=== PATIENT | female | born 1985 | race Caucasian/White ===

== ENCOUNTER 2017-03-24 08:05 | Inpatient (IN) | payer BC, MEDICAID ==
[2017-03-24] MEDS ORDERED: OXYTOCIN* 10 UNITS/ML 1 ML VIAL IM ONE (11:27)
[2017-03-24] MEDS ORDERED: Zolpidem TAB* 5 MG PO PRN (11:27)
[2017-03-24] MEDS ORDERED: Witch Hazel PAD* JAR TOPICAL PRN (11:27)
[2017-03-24] MEDS ORDERED: Dibucaine 1% 28.35 GM TUBE PR PRN (11:27)
[2017-03-24] MEDS ORDERED: Acetaminophen TAB* 325 MG PO PRN (11:27)
[2017-03-24] MEDS ORDERED: Glycerin ADULT SUPP PR PRN (11:27)
[2017-03-24] MEDS: Ibuprofen TAB* 600 MG PO PRN ×2 (12:13→18:12)
[2017-03-24] MEDS: Docusate CAP* 100 MG PO SCH ×2 (13:55→20:13)
[2017-03-25] MEDS: Ibuprofen TAB* 600 MG PO PRN (00:33)
[2017-03-25] MEDS: Simethicone TAB* 80 MG TAB.CHEW PO SCH (07:18)
[2017-03-25 07:33] VITALS: BP 133/81
[2017-03-25 08:26] LABS: Hematocrit 40 % (35-47); Hemoglobin 13.6 g/dl (12.0-16.0); Mean Corpuscular HGB Conc 34 g/dl (31-36); Mean Corpuscular Hemoglobin 30 pg (27-31); Mean Corpuscular Volume 89 fL (80-97); Mean Platelet Volume 7 um3 (7.4-10.4); Red Blood Count 4.54 10^6/ul (4.0-5.4); Red Cell Distribution Width 15 % (10.5-15); White Blood Count 10.4 10^3/ul (3.5-10.8)
[2017-03-25] MEDS ORDERED: Ferrous Gluconate TAB* 324 MG TAB PO SCH (09:00)
[2017-03-25] MEDS: Docusate CAP* 100 MG PO SCH (09:21)
[2017-03-25] MEDS ORDERED: RHO D Immune Globulin (HUMAN)* 300 MCG = 1,500 I.U. INJ IM ONE (09:50)
== END 2017-03-25 12:05 | disposition home or self-care (01) | DRG 560 ==
LOC: MCHOBOUT 08:05 → MCHOB 09:43
PROVIDERS: ADMIT Obstetrics & Gynecology; ATTEND Obstetrics & Gynecology
PROC: 10E0XZZ Delivery of Products of Conception, External Approach (ICD-10-PCS; principal; 2017-03-24)
PROC: 10907ZC Drainage of Amniotic Fluid, Therapeutic from Products of Conception, Via Natural or Artificial Opening (ICD-10-PCS; 2017-03-24)
DX: O48.0 Post-term pregnancy (principal); Z68.41 Body mass index [BMI] 40.0-44.9, adult; E66.01 Morbid (severe) obesity due to excess calories; O99.214 Obesity complicating childbirth; Z3A.40 40 weeks gestation of pregnancy; Z37.0 Single live birth
CPT/HCPCS: 36415; 85025; 85461; 86900; 86901; A9270-GY; J2790

== ENCOUNTER 2018-10-12 08:14 | Emergency (ER) | payer BC ==
--- OUTSIDE RECORDS SUMMARY | 2018-10-12 08:20 | XMS REPORT | Continuity of Care Document ---
:1985 External Reference #:[id number] Author Name ApollopinaPadmini Care Team Providers Name Role Phone Jennifer Barnes MD Primary Care Physician Unavailable Payers Date Identification Numbers Payment Provider Subscriber Expires: 2015 Policy Number: [id number] [employer] Jose F Chu Group Number: [id number] [address] PayID: [id number] [place] [address] Policy Number: [id number] [employer] Jose F hCu PayID: [id number] [address] [address] [place] [address] Advance Directives Type Date Description Status Comment Other Directive 08/17/2017 Health Care Proxy Current and Verified Problems Description No Active Problems Family History Date Family Member(s) Observation Comments General Cancer General Diabetes General Heart Disease Father Hypertension Father AR Mother No Current Problems Social History Type Date Description Comments Sex Unknown Marital Status Single Lives With Children 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[employer] ETOH Use Occasionally consumes alcohol Tobacco Use Start: Unknown End: Patient is a former Quit in 2018 (1/2 Unknown smoker ppd x 15 years) Smoking Status Reviewed: 09/24/18 Patient is a former Quit in 2018 (1/2 smoker ppd x 15 years) Exercise Exercises regularly Type/Frequency Allergies, Adverse Reactions, Alerts Active Allergies Reaction Severity Comments Date Penicillin 02/10/2014 Augmentin 02/10/2014 Azithromycin 02/16/2015 Medications Active Medications SIG Qnty Indications Ordering Provider Date Amlodipine Besylate 1 by mouth every 30tabs I10 Lm Greenfield NP 09/24/2018 5mg day Tablets Omeprazole 1 by mouth once 30caps K21.9 Lm Greenfield NP 08/13/[address] Fluticasone 2 sprays each 16units H93.291 Lm Greenfield NP 08/17/2017 Propionate nostril qd. 50mcg/Act Suspension History Medications No Active Medications Unknown 06/29/2017 - 08/17/2017 Ranitidine HCL take one tablet by 60tabs Lm Greenfield NP 2016 - 150mg mouth twice a day 06/29/2017 Tablets Xenical one capsule PO tid 90caps Lm Greenfield NP 09/22/2015 - 120mg Capsules with each fat 10/07/2015 containing meal Ondansetron dissolve one 30tabs R11.2 Lm Greenfield NP 07/15/2015 - 4mg Tablets tablet orally 07/19/2015 Dispers every 8 hours as needed for nausea. No Active Medications Unknown 04/13/2015 - 04/13/2015 Sertraline HCL one tablet daily. 90tabs F32.8 Lm Greenfield NP 04/13/2015 - 50mg 06/29/2017 Tablets Escitalopram Oxalate 1/2 tab once daily 30tabs Lm Greenfield NP 03/18/2015 - for 1 week then 04/13/2015 10mg Tablets increase to 1 tab daily. No Active Medications Unknown 02/10/2014 - 03/18/2015 NorethindronMell Mckeon, - 0.35mg [employer] 07/09/2015 Tablets Immunizations Description No Information Available Vital Signs Date Vital Result Comment 09/24/2018 8:53am Height 64 inches 5'4" Weight 251.38 lb Heart Rate 70 /min BP Systolic 154 mmHg BP Diastolic 105 mmHg BP Systolic Recheck 146 mmHg BP Diastolic Recheck 98 mmHg Body Temperature 97.9 F O2 % BldC Oximetry 98 % BMI (Body Mass Index) 43.1 kg/m2 08/13/2018 8:37am Height 64 inches 5'4" Weight 251.50 lb Heart Rate 66 /min BP Systolic 179 mmHg BP Diastolic 98 mmHg BP Systolic Recheck 176 mmHg BP Diastolic Recheck 100 mmHg Body Temperature 97.6 F O2 % BldC Oximetry 98 % BMI (Body Mass Index) 43.2 kg/m2 08/17/2017 8:53am Weight 234.50 lb Heart Rate 84 /min BP Systolic 128 mmHg BP Diastolic 80 mmHg Body Temperature 98.0 F O2 % BldC Oximetry 98 % 06/29/2017 11:09am Weight 229.50 lb Heart Rate 73 /min BP Systolic Sitting 122 mmHg BP Diastolic Sitting 82 mmHg O2 % BldC Oximetry 96 % 10/07/2015 11:47am Heart Rate 74 /min BP Systolic Sitting 131 mmHg BP Diastolic Sitting 89 mmHg Body Temperature 99.0 F O2 % BldC Oximetry 98 % 09/07/2015 10:20am Weight 225.00 lb Heart Rate 64 /min BP Systolic Sitting 122 mmHg BP Diastolic Sitting 78 mmHg Respiratory Rate 15 /min Body Temperature 98.1 F O2 % BldC Oximetry 98 % 07/15/2015 11:46am Weight 212.50 lb Heart Rate 91 /min BP Systolic Sitting 132 mmHg BP Diastolic Sitting 90 mmHg Respiratory Rate 15 /min Body Temperature 98.1 F O2 % BldC Oximetry 98 % 06/22/2015 10:40am Weight 213.25 lb Heart Rate 69 /min BP Systolic Sitting 128 mmHg BP Diastolic Sitting 86 mmHg Body Temperature 98.2 F O2 % BldC Oximetry 98 % 04/13/2015 9:33am Height 64.5 inches 5'4.50" Weight 205.25 lb Heart Rate 92 /min BP Systolic Sitting 112 mmHg BP Diastolic Sitting 84 mmHg Body Temperature 97.0 F O2 % BldC Oximetry 98 % BMI (Body Mass Index) 34.7 kg/m2 02/16/2015 11:01am Height 64.5 inches 5'4.50" Weight 202.00 lb Heart Rate 76 /min BP Systolic Sitting 121 mmHg BP Diastolic Sitting 80 mmHg Body Temperature 97.9 F BMI (Body Mass Index) 34.1 kg/m2 02/10/2014 1:51pm Height 64 inches 5'4" Weight 197.00 lb Heart Rate 74 /min BP Systolic 115 mmHg BP Diastolic 82 mmHg BMI (Body Mass Index) 33.8 kg/m2 Results Test Date Facility Test Result H/L Range Note Laboratory test 12/[facility] HCG 3382.00 N [address] mIU/[place] [address] [phone] Urinalysis 12/26/2015 [facility] Urine Color Yellow N Profile [address] [place] [address] [phone] Urine Appearance Clear N Urine Specific [place] 1.013 N 1.010-1.030 Urine pH 5.0 N 5-9 Urine Urobilinogen Negative N Negative Urine Ketones Negative N Negative Urine Protein Negative N Negative Urine Leukocytes Negative N Negative Urine Blood 3+ Abnormal Negative Urine Nitrite Negative N Negative Urine Bilirubin Negative N Negative Urine Glucose Negative N Negative Urine White Blood Cell Trace(0-5/hpf) N Absent Urine Red Blood Cell 3+(>10/hpf) Abnormal Absent Urine Bacteria Absent N Absent Urine Squamous Epithelial Cell Present Abnormal Absent Urine Hyaline Casts Present Abnormal Absent Inr/Protime 12/26/2015 [facility] Inr 0.88 Low 0.89-1.[address] [place] [address] [phone] Laboratory test 12/26/2015 [facility] Partial 31.6 N 26.0- 36.[address] [place] [address] PTT [phone] CBC Auto Diff 12/26/2015 [facility] White Blood 9.6 10^3/uL N 3.5-10.[address] [place] [address] [phone] Red Blood Count 4.63 10^6/uL N 4.0-5.4 Hemoglobin 14.1 g/dL N 12.0-16.0 Hematocrit 42 % N 35-47 Mean Corpuscular Volume 90 fL N 80-97 Mean Corpuscular Hemoglobin 31 pg N 27-31 Mean Corpuscular HGB Conc 34 g/dL N 31-36 Red Cell Distribution Width 12 % N 10.5-15 Platelet Count 279 10^3/uL N 150-450 Mean Platelet Volume 7 um3 Low 7.4-10.4 Abs Neutrophils 6.5 10^3/uL N 1.5-7.7 Abs Lymphocytes 1.9 10^3/uL N 1.0-4.8 Abs Monocytes 0.5 10^3/uL N 0-0.8 Abs Eosinophils 0.2 10^3/uL N 0-0.6 Abs Basophils 0.4 10^3/uL High 0-0.2 Abs Nucleated RBC 0.01 10^3/uL N Granulocyte % 67.2 % N 38-83 Lymphocyte % 20.1 % Low 25-47 Monocyte % 5.6 % N 1-9 Eosinophil % 2.5 % N 0-6 Basophil % 4.6 % High 0-2 Nucleated Red Blood Cells % 0.1 N Laboratory test 12/26/2015 [facility] Lactic Acid 0.8 mmol/L N 0.5-2.0 2 finding [address] [place] [address] [phone] Comp Metabolic 12/26/2015 [facility] Sodium 137 mmol/L N 133- 145 Panel [address] [place] [address] [phone] Potassium 3.9 mmol/L N 3.5-5.0 Chloride 104 mmol/L N 101-111 Co2 Carbon Dioxide 27 mmol/L N 22-32 Anion Gap 6 mmol/L N 2-11 Glucose 83 mg/dL N 70-100 Blood Urea Nitrogen 13 mg/dL N 6-24 Creatinine 0.65 mg/dL N 0.51-0.95 BUN/Creatinine Ratio 20.0 N 8-20 Calcium 9.5 mg/dL N 8.6-10.3 Total Protein 7.1 g/dL N 6.4-8.9 Albumin 3.9 g/dL N 3.2-5.2 Globulin 3.2 g/dL N 2-4 Albumin/Globulin Ratio 1.2 N 1-3 Total Bilirubin 0.20 mg/dL N 0.2-1.0 Alkaline Phosphatase 58 U/L N 34-104 Alt 13 U/L N 7-52 Ast 14 U/L N 13-39 Egfr Non- 105.6 N >60 Egfr 135.8 N >60 3 Laboratory test finding 10/07/2015 [employer] [facility] Test Urine negative Ua Routine 10/07/2015 [employer] [facility] House Ua Specific [place] 1.020 Ua PH 5 Ua Color yellow Ua Appera clear Ua WBC neg Ua Protein trace Ua Glucose neg Ua Ketones neg Ua Bilirubin neg Ua Urobilinogen normal Ua Nitrite neg Ua Occult Blood trace Laboratory test finding 10/07/2015 [facility] Amylase 29 U/L N 29-103 [address] [place] [address] [phone] Lipase 13 U/L N 11.0-82.0 Comp Metabolic Panel 10/07/2015 [facility] Sodium 139 mmol/L N 133-145 [address] [place] [address] [phone] Potassium 3.9 mmol/L N 3.5-5.0 Chloride 104 mmol/L N 101-111 Co2 Carbon Dioxide 28 mmol/L N 22-32 Anion Gap 7 mmol/L N 2-11 Glucose 75 mg/dL N 70-100 Blood Urea Nitrogen 18 mg/dL N 6-24 Creatinine 0.71 mg/dL N 0.51-0.95 BUN/Creatinine Ratio 25.4 High 8-20 Calcium 9.1 mg/dL N 8.6-10.3 Total Protein 7.2 g/dL N 6.4-8.9 Albumin 4.2 g/dL N 3.2-5.2 Globulin 3.0 g/dL N 2-4 Albumin/Globulin Ratio 1.4 N 1-3 Total Bilirubin 0.30 mg/dL N 0.2-1.0 Alkaline Phosphatase 67 U/L N 34-104 Alt 17 U/L N 7-52 Ast 22 U/L N 13-39 Egfr Non- 95.4 N >60 Egfr 122.7 N >60 4 CBC Auto Diff 10/07/2015 [facility] White Blood 8.4 10^3/uL N 3.5-10.[address] [place] [address] [phone] Red Blood Count 4.65 10^6/uL N 4.0-5.4 Hemoglobin 14.6 g/dL N 12.0-16.0 Hematocrit 42 % N 35-47 Mean Corpuscular Volume 91 fL N 80-97 Mean Corpuscular Hemoglobin 31 pg N 27-31 Mean Corpuscular HGB Conc 35 g/dL N 31-36 Red Cell Distribution Width 13 % N 10.5-15 Platelet Count 286 10^3/uL N 150-450 Mean Platelet Volume 7 um3 Low 7.4-10.4 Abs Neutrophils 5.2 10^3/uL N 1.5-7.7 Abs Lymphocytes 2.2 10^3/uL N 1.0-4.8 Abs Monocytes 0.6 10^3/uL N 0-0.8 Abs Eosinophils 0.3 10^3/uL N 0-0.6 Abs Basophils 0 10^3/uL N 0-0.2 Abs Nucleated RBC 0 10^3/uL N Granulocyte % 62.2 % N 38-83 Lymphocyte % 26.6 % N 25-47 Monocyte % 7.2 % N 1-9 Eosinophil % 3.5 % N 0-6 Basophil % 0.5 % N 0-2 Nucleated Red Blood Cells % 0 N CBC Auto Diff 07/15/2015 [facility] White Blood 8.7 10^3/uL N 3.5-10.[address] [place] [address] [phone] Red Blood Count 5.00 10^6/uL N 4.0-5.4 Hemoglobin 15.5 g/dL N 12.0-16.0 Hematocrit 47 % N 35-47 Mean Corpuscular Volume 93 fL N 80-97 Mean Corpuscular Hemoglobin 31 pg N 27-31 Mean Corpuscular HGB Conc 33 g/dL N 31-36 Red Cell Distribution Width 13 % N 10.5-15 Platelet Count 271 10^3/uL N 150-450 Mean Platelet Volume 8 um3 N 7.4-10.4 Abs Neutrophils 6.8 10^3/uL N 1.5-7.7 Abs Lymphocytes 1.1 10^3/uL N 1.0-4.8 Abs Monocytes 0.6 10^3/uL N 0-0.8 Abs Eosinophils 0.2 10^3/uL N 0-0.6 Abs Basophils 0 10^3/uL N 0-0.2 Abs Nucleated RBC 0 10^3/uL N Granulocyte % 78.4 % N 38-83 Lymphocyte % 12.1 % Low 25-47 Monocyte % 6.4 % N 1-9 Eosinophil % 2.6 % N 0-6 Basophil % 0.5 % N 0-2 Nucleated Red Blood Cells % 0 N Comp Metabolic Panel 07/15/2015 [facility] Sodium 136 mmol/L N 133-[address] [place] [address] [phone] Potassium 3.5 mmol/L N 3.5-5.0 Chloride 101 mmol/L N 101-111 Co2 Carbon Dioxide 27 mmol/L N 22-32 Anion Gap 8 mmol/L N 2-11 Glucose 77 mg/dL N 70-100 Blood Urea Nitrogen 19 mg/dL N 6-24 Creatinine 0.66 mg/dL N 0.51-0.95 BUN/Creatinine Ratio 28.8 High 8-20 Calcium 8.9 mg/dL N 8.6-10.3 Total Protein 6.8 g/dL N 6.4-8.9 Albumin 4.3 g/dL N 3.2-5.2 Globulin 2.5 g/dL N 2-4 Albumin/Globulin Ratio 1.7 N 1-3 Total Bilirubin 0.70 mg/dL N 0.2-1.0 Alkaline Phosphatase 70 U/L N 34-104 Alt 15 U/L N 7-52 Ast 15 U/L N 13-39 Egfr Non- 103.8 N >60 Egfr 133.5 N >60 5 Laboratory test 07/15/2015 [facility] TSH (Thyroid Stim 2.73 N 0.34-5.60 finding 101 [facility] Horm) ?IU/[place] [address] [phone] Laboratory test 07/15/2015 [facility] Urine Culture And SEE RESULT 6 finding 101 [facility] [place] [address] [phone] Laboratory test 07/15/2015 [employer] [facility] [facility] Test neg finding Urine Ua Routine 07/15/2015 [employer] [facility] [facility] House Ua Specific 1.020 [place] Ua PH 5 Ua Color dark yellow Ua Appera cloudy Ua WBC neg Ua Protein trace Ua Glucose neg Ua Ketones neg Ua Bilirubin neg Ua Urobilinogen neg Ua Nitrite neg Ua Occult Blood positive Lipid Profile 02/25/2015 [facility] Triglycerides 153 mg/dL N 7 (Trig/Chol/HDL) [address] [place] [address] [phone] Cholesterol 207 mg/dL N 8 HDL Cholesterol 50.9 mg/dL N 9 LDL Cholesterol 126 mg/dL N 10 Laboratory test finding 02/25/2015 [facility] Glucose 89 mg/dL N 70-[address] [place] [address] [phone] 1 <5.0 Negative 5.0 - 25.0 Indeterminate (Repeat testing recommended after 72 hours) >25.0 Positive Perimenopausal women can display HCG levels of up to 20 mIU/mL 2 [facility] Severe Sepsis and Septic Shock Management Bundle Measure requires all lactic acids initially measuring >2.0 mmol/L be repeated. 3 Because ethnic data is not always readily available, this report includes an eGFR for both -Americans and non- Americans. The National Kidney Disease Education Program (NKDEP) does not endorse the use of the MDRD equation for patients that are not between the ages of 18 and 70, are , have extremes of body size, muscle mass, or nutritional status, or are non- or non-. According to the National Kidney Foundation, irrespective of diagnosis, the stage of the disease is based on the level of kidney function: Stage Description GFR(mL/min/1.73 m(2)) 1 Kidney damage with normal or decreased GFR 90 2 Kidney damage with mild decrease in GFR 60-89 3 Moderate decrease in GFR 30-59 4 Severe decrease in GFR 15-29 5 Kidney failure <15 (or dialysis) 4 Because ethnic data is not always readily available, this report includes an eGFR for both -Americans and non- Americans. The National Kidney Disease Education Program (NKDEP) does not endorse the use of the MDRD equation for patients that are not between the ages of 18 and 70, are , have extremes of body size, muscle mass, or nutritional status, or are non- or non-. According to the National Kidney Foundation, irrespective of diagnosis, the stage of the disease is based on the level of kidney function: Stage Description GFR(mL/min/1.73 m(2)) 1 Kidney damage with normal or decreased GFR 90 2 Kidney damage with mild decrease in GFR 60-89 3 Moderate decrease in GFR 30-59 4 Severe decrease in GFR 15-29 5 Kidney failure <15 (or dialysis) 5 Because ethnic data is not always readily available, this report includes an eGFR for both -Americans and non- Americans. The National Kidney Disease Education Program (NKDEP) does not endorse the use of the MDRD equation for patients that are not between the ages of 18 and 70, are , have extremes of body size, muscle mass, or nutritional status, or are non- or non-. According to the National Kidney Foundation, irrespective of diagnosis, the stage of the disease is based on the level of kidney function: Stage Description GFR(mL/min/1.73 m(2)) 1 Kidney damage with normal or decreased GFR 90 2 Kidney damage with mild decrease in GFR 60-89 3 Moderate decrease in GFR 30-59 4 Severe decrease in GFR 15-29 5 Kidney failure <15 (or dialysis) 6 SEE RESULT BELOW Name: JOSE F CHU : [address]: Lm Greenfield NP Acct: [id number] Unit: [id number] AGE: 30 Location: [facility] Re07/15/15 SEX: F Status: REG REF SPEC: [id number] ISABEL: 07/15/15-1226 [facility] DR: Lm Greenfield NP REQ: [id number] RECD: 07/15/15 STATUS: COMP _ SOURCE: URINE SPDESC: ORDERED: Urine Culture Procedure Result Reported Site Urine Culture Final 07/16/15- 1643 ML No growth of clinically significant organisms * ML - MAIN LAB (PSC1) . END OF REPORT * ML=Testing performed at Main Lab DEPARTMENT OF PATHOLOGY, [address] [place] [address] Talha Smiley M.D. Director [facility] # [id number] 7 Desirable <150 Borderline high 150-199 High 200-499 Very High >500 8 Desirable <200 Borderline high 200-239 High >239 9 Low <40 Desirable: 40-60 High: >60 10 Desirable: <100 mg/dL Near Optimal: 100-129 mg/dL Borderline High: 130-159 mg/dL High: 160-189 mg/dL Very High: >189 mg/dL Procedures Description No Information Available Encounters Type Date Location Provider Dx Diagnosis Office Visit 09/24/2018 [facility] Lm Greenfield, KIA I10 Essential (primary ) 9:00a Medicine hypertension Z13.220 Encounter for screening for lipoid disorders Office Visit 08/13/2018 8:40a [facility] Lm Greenfield, R03.0 Elevated Medicine [employer] blood-pressure reading, w/o diagnosis of htn M79.606 Pain in leg, unspecified K21.9 Gastro-esophageal reflux disease without esophagitis Office Visit 08/17/2017 9:00a [facility] Lm Greenfield, M54.9 Dorsalgia, Medicine [employer] unspecified H93.291 Other abnormal auditory perceptions, right ear M79.606 Pain in leg, unspecified Office Visit 06/29/2017 10:40a [facility] Lm Greenfield, 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 Office Visit 10/07/2015 11:40a [facility] Lm Greenfield, R10.9 Unspecified Medicine [employer] abdominal pain Office Visit 09/07/2015 10:20a [facility] Lm Greenfield, M79.662 Pain in left lower Medicine [employer] leg Office Visit 07/15/2015 11:40a [facility] Lm Greenfield, R11.2 Nausea with Medicine [employer] vomiting, unspecified R19.7 Diarrhea, unspecified Office Visit 06/22/2015 10:40a [facility] Lm Greenfield, F32.8 Other depressive Medicine [employer] episodes Office Visit 04/13/2015 9:40a [facility] Lm Greenfield, F32.8 Other depressive Medicine [employer] episodes Office Visit 02/16/2015 11:00a [facility] Lm Greenfield, Z00.00 Encntr for general Medicine [employer] adult medical exam w/o abnormal findings Z13.220 Encounter for screening for lipoid disorders Z13.1 Encounter for screening for diabetes mellitus Office Visit 02/10/2014 1:30p [facility] Sarika Brown, 845.00 [facility] Strains Ankle Unspec Site Plan of Treatment Future Appointment(s):10/18/2018 9:00 am - Lm Greenfield NP at [facility] Dgamgbsl79/29/2019 - Lm Greenfield NPI10 Essential (primary) hypertensionNew Medication:Amlodipine Besylate 5 mg - 1 by mouth every dayComments:Your blood pressure is elevated again today. Start taking the amlodipine daily in the morning. Try to check your blood pressure at least once weekly and record those readings. If consistently running greater than 135/85 (either number) please call. It is important to limit sodium and caffeine in yourdiet.IT is important to stay active in order to try to lose weight.Follow up:4 eiougF93.220 Encounter for screening for lipoid disorders
[2018-10-12 08:57] VITALS: BP 147/92
--- NOTE | 2018-10-12 09:27 | UC ---
Skin Complaint HPI - HPI Summary HPI Summary: Patient is a 33-year-old female who presents to the urgent care with chief complaint of right hand pain and swelling. She reports that she had an insect bite yesterday and now the hand is swelling an increase in temperature. She has no other complaints. - History of Current Complaint Chief Complaint: UCSkin Time Seen by Provider: 10/12/18 09:03 Stated Complaint: SWOLLEN HAND Hx Last Menstrual Period: IUD - mirena, doesn't get period Pain Intensity: 5 - Allergy/Home Medications Allergies/Adverse Reactions: Allergies Allergy/AdvReac Type Severity Reaction Status Date / Time amoxicillin [From Augmentin] Allergy Severe skin peels Verified 10/12/18 08:58 azithromycin Allergy Severe skin peels Verified 10/12/18 08:58 clavulanic acid Allergy Severe skin peels Verified 10/12/18 08:58 [From Augmentin] Penicillins Allergy Hives Verified 10/12/18 08:58 Home Medications: Home Medications Omeprazole 20 mg PO DAILY 10/12/18 [History Confirmed 10/12/18] amLODIPine TAB* [Norvasc 5 mg TAB*] 5 mg PO DAILY 10/12/18 [History Confirmed ] PMH/Surg Hx/FS Hx/Imm Hx Previously Healthy: Yes - Surgical History Surgical History: Yes Surgery Procedure, Year, and Place: tonsillectomy 1995. thumb surgery - Family History Known Family History: Positive: None - Negative cardiac fhx - Social History Alcohol Use: Weekly Substance Use Type: None Smoking Status (MU): Former Smoker Type: Cigarettes Household Exposure Type: Cigarettes - Immunization History Most Recent Influenza Vaccination: 02/2017 Most Recent Tetanus Shot: august 2010 Most Recent Pneumonia Vaccination: none Review of Systems All Other Systems Reviewed And Are Negative: Yes Constitutional: Positive: Negative Skin: Positive: Negative Eyes: Positive: Negative ENT: Positive: Negative Respiratory: Positive: Negative Cardiovascular: Positive: Negative Gastrointestinal: Positive: Negative Genitourinary: Positive: Negative Motor: Positive: Negative Neurovascular: Positive: Negative Musculoskeletal: Positive: Other: - Right hand swelling and redness Neurological: Positive: Negative Psychological: Positive: Negative Is Patient Immunocompromised?: Yes Physical Exam - Summary Physical Exam Summary: VITAL SIGNS: Reviewed. GENERAL: Patient is a well developed and nourished female who is sitting comfortable in the stretcher. Patient is not in any acute respiratory distress. HEAD AND FACE: Normocephalic and atraumatic. EYES: PERRLA, EOMI x 2, EARS: Hearing grossly intact. MOUTH: Oropharynx within normal limits. NECK: Supple, trachea is midline, no adenopathy, no JVD, no carotid bruit, no c- spine tenderness, neck with full ROM. CHEST: Symmetric, no tenderness at palpation LUNGS: CTA B/L. No wheezing or crackles. CVS: RRR, S1 and S2 present, no murmurs or gallops appreciated. ABDOMEN: Soft, NT, No distention. Normal BS. EXTREMITIES: FROM in all major joints, no edema, no cyanosis or clubbing. NEURO: Alert and oriented x 3. No acute neurological deficits. Speech is normal and follows commands. SKIN: right hand with swelling and redness Triage Information Reviewed: Yes Appearance: Well-Appearing, No Pain Distress, Well-Nourished Vital Signs: Initial Vital Signs Temp 98.1 F 10/12/18 08:53 Pulse 64 10/12/18 08:53 Resp 16 10/12/18 08:53 BP 147/92 10/12/18 08:53 Pulse Ox 100 10/12/18 08:53 Course/Dx - Course Course Of Treatment: He seems that the patient has an slight cellulitis therefore the patient was placed in Bactrim. Patient will follow-up with the primary care physician in the next 2-3 days. She was recommended to return to the urgent care if any symptoms worsen. She understands and agrees. - Diagnoses Provider Diagnosis: Cellulitis of right hand Discharge - Sign-Out/Discharge Documenting (check all that apply): Patient Departure All imaging exams completed and their final reports reviewed: No Studies - Discharge Plan Condition: Stable Disposition: HOME Prescriptions: Sulfamethox/Trimethoprim DS* [Bactrim DS 800/160 TAB*] 1 tab PO BID #14 tab Patient Education Materials: Cellulitis (DC) Forms: *Work Release Referrals: Lm Greenfield NP [Primary Care Provider] - Additional Instructions: Take medicatins as indicated. Return to if symptoms worsen - Billing Disposition and Condition Condition: STABLE Disposition: Home
== END 2018-10-12 09:35 | disposition home or self-care (01) ==
LOC: UCEAST 08:14
DX: L03.113 Cellulitis of right upper limb (principal); Z88.1 Allergy status to other antibiotic agents; Z88.0 Allergy status to penicillin; Z87.891 Personal history of nicotine dependence
CPT/HCPCS: 99212; G0463